=== PATIENT | female | born 1965 | race Caucasian/White ===

== ENCOUNTER 2022-05-27 13:36 | Outpatient (CLI) | payer OTHER, SELFPAY ==
[2022-05-27 18:18] LABS: Chloride* 95 mmol/L (96-114); Potassium* 3.6 mmol/L (3.6-5.1); Sodium* 137 mmol/L (135-149)
[2022-05-27 18:21] LABS: Blood Urea Nitrogen* 18 mg/dL (7-30); Carbon Dioxide* 31 mmol/L (20-32); Cholesterol* 248 mg/dL (90-199); Creatinine* 0.8 mg/dL (0.5-1.5); Estimated Glomerular Filt Rate 85 ml/min
[2022-05-27 18:22] LABS: Calcium* 9.1 mg/dL (8.4-10.6); Glucose* 102 mg/dL (60-115); HDL Cholesterol* 48 mg/dL (>=50); LDL Cholesterol Calculated 162 mg/dL (<100); Triglycerides* 188 mg/dL (40-149)
== END 2022-05-27 13:37 | disposition home or self-care (01) ==
PROVIDERS: PCP Family Medicine; Visit Provider Family Medicine
DX: I10 Essential (primary) hypertension (principal); E78.5 Hyperlipidemia, unspecified; E66.01 Morbid (severe) obesity due to excess calories
CPT/HCPCS: 80048; 80061

== ENCOUNTER 2022-09-24 13:14 | Outpatient (CLI) | payer OTHER, SELFPAY ==
--- NOTE | 2022-09-24 13:40 | CRLHL7_ITS ---
For Patients: As a result of the Cures Act, medical imaging exams and procedure reports are released immediately into your electronic medical record. You may view this report before your referring provider. If you have questions, please contact your health care provider. BILATERAL SCREENING MAMMOGRAM WITH COMPUTER-AIDED DETECTION AND TOMOSYNTHESIS TECHNIQUE: CC and MLO views were obtained. These mammographic images have been obtained using full-field digital technique. These mammographic images were interpreted with the benefit of computer-aided detection. Breast Tomosynthesis was used in this interpretation. COMPARISON FILM: 09/04/20, 12/29/18, 08/22/16. FINDINGS: There are scattered areas of fibroglandular density IMPRESSION: There is no radiographic evidence for malignancy. ASSESSMENT: BI-RADS Category 2: Benign RECOMMENDATION: Routine screening mammogram in 1 year. A lay language report of this examination will be provided to the patient. Nirmal Rose M.D. Diagnostic Radiologist [email or web address] Transcribed: 3:46 [email or web address] patel/Dictated by: Nirmal Rose MD @ 09/25/2022 9:10:00 AM (Electronically Signed)
== END 2022-09-24 13:15 | disposition home or self-care (01) ==
LOC: MAMMO 13:16
PROVIDERS: PCP Family Medicine; Visit Provider Family Medicine
DX: Z12.31 Encounter for screening mammogram for malignant neoplasm of breast (principal)
CPT/HCPCS: 77063; 77067

== ENCOUNTER 2023-07-22 08:53 | Outpatient (CLI) | payer OTHER, SELFPAY | END 2023-07-22 08:54 | disposition home or self-care (01) | PROVIDERS: PCP Family Medicine; Visit Provider Family Medicine | DX: I10 Essential (primary) hypertension (principal); E78.5 Hyperlipidemia, unspecified; E66.9 Obesity, unspecified; M25.50 Pain in unspecified joint; R63.5 Abnormal weight gain; Z13.29 Encounter for screening for other suspected endocrine disorder | CPT/HCPCS: 80048; 80061; 84439; 84443 ==

== ENCOUNTER 2023-08-18 10:09 | Outpatient (CLI) | payer OTHER, SELFPAY ==
--- NOTE | 2023-08-18 11:30 | W.ANESCHARGE ---
Anesthesia Charges Start Date/Time Anesthesia Start Date: 08/18/23 Anesthesia Start Time: 11:01 Stop Date/Time Anesthesia Stop Date: 08/18/23 Anesthesia Stop Time: 11:28
--- NOTE | 2023-08-18 11:39 | W.ANESCHARGE ---
Anesthesia Charges Start Date/Time Anesthesia Start Date: 08/18/23 Anesthesia Start Time: 11:01 Stop Date/Time Anesthesia Stop Date: 08/18/23 Anesthesia Stop Time: 11:28
== END 2023-08-18 10:10 | disposition home or self-care (01) ==
LOC: OP CLINIC 10:11
PROVIDERS: PCP Family Medicine; Visit Provider Surgery
DX: Z12.11 Encounter for screening for malignant neoplasm of colon (principal); K57.30 Diverticulosis of large intestine without perforation or abscess without bleeding; Z83.719 Family history of colon polyps, unspecified
CPT/HCPCS: 00812; 45378; J2704

== ENCOUNTER 2023-08-26 18:24 | Outpatient (CLI) | payer OTHER, SELFPAY | END 2023-08-26 18:25 | disposition home or self-care (01) | LOC: NFLDREF 18:25 | PROVIDERS: PCP Family Medicine; Visit Provider Registered Nurse | DX: Z01.419 Encounter for gynecological examination (general) (routine) without abnormal findings (principal); N92.6 Irregular menstruation, unspecified | CPT/HCPCS: 83001 ==

== ENCOUNTER 2023-09-11 12:47 | Outpatient (CLI) | payer OTHER, SELFPAY ==
--- NOTE | 2023-09-11 13:00 | CRLHL7_ITS ---
For Patients: As a result of the Century Cures Act, medical imaging exams and procedure reports are released immediately into your electronic medical record. You may view this report before your referring provider. If you have questions, please contact your health care provider. INDICATION: irregular menses COMPARISON: 02/01/2019 TECHNIQUE: 2D camacho scale and color Doppler images were acquired of the pelvis using a transabdominal and transvaginal approach. FINDINGS: Sonographic images demonstrate a normal size and smooth outer contour of the uterus. Uterus measures 8.2 cm in length by 4.1 cm in AP diameter by 4.8 cm in transverse dimension. Fluid within the endocervical canal is again noted. Internal echoes are present within this fluid collection. The endometrial lining measures 9 mm in composite thickness. The right ovary is not visualized and the left ovary measures 2.5 x 1.6 x 2.0 cm. The ovaries demonstrate normal arterial and venous blood flow on color Doppler analysis. There are no suspicious fluid collections within the cul-de-sac. IMPRESSION: Mildly complex fluid collection within the endocervix is similar to the prior study. Endometrial thickness 9 millimeters. Dictated by Nirmal Rose MD @ 09/12/2023 11:24:41 AM (Electronically Signed)
== END 2023-09-11 12:48 | disposition home or self-care (01) ==
LOC: US 12:48
PROVIDERS: PCP Family Medicine; Visit Provider Registered Nurse
DX: N92.6 Irregular menstruation, unspecified (principal); R93.89 Abnormal findings on diagnostic imaging of other specified body structures
CPT/HCPCS: 76830; 76856

== ENCOUNTER 2023-09-23 09:01 | Outpatient (CLI) | payer OTHER, SELFPAY | END 2023-09-23 09:02 | disposition home or self-care (01) | PROVIDERS: PCP Family Medicine; Visit Provider Family Medicine | DX: Z01.818 Encounter for other preprocedural examination (principal) | CPT/HCPCS: 85025 ==

== ENCOUNTER 2023-09-30 07:53 | Day surgery (SDC) | payer OTHER, SELFPAY ==
[2023-09-30] MEDS: LACTATED RINGERS 1000 ML 1,000 ML 100 ML IV (07:50)
[2023-09-30 08:02] VITALS: BMI 56.3
--- NOTE | 2023-09-30 08:26 | SUR.PREOP ---
Pt has decided against IUD insertion Dr. Fung spoke with pt
[2023-09-30 08:29] VITALS: BP 142/63; PULSE 88; RESP 18; TEMP 37; O2SAT 95
[2023-09-30 08:30] LABS: Hemoglobin* 14.8 gm/dL (12.0-16.0)
[2023-09-30 08:33] LABS: Ur HCG Qualitative* Negative (Negative)
[2023-09-30] MEDS: SODIUM CHLORIDE 0.9 % (FLUSH) 10 ML SYRINGE IVF (08:45)
[2023-09-30 08:51] LABS: Creatinine* 0.7 mg/dL (0.5-1.5); Est. Creatinine Clearance* 71.58; Estimated Glomerular Filt Rate 100 ml/min
--- NOTE | 2023-09-30 09:53 | W.ANESCHARGE ---
Anesthesia Charges Start Date/Time Anesthesia Start Date: 09/30/23 Anesthesia Start Time: 09:19 Stop Date/Time Anesthesia Stop Date: 09/30/23 Anesthesia Stop Time: 10:27
--- NOTE | 2023-09-30 10:28 | PM.GYNHPPRM ---
DRAINAGE DESIGN COORDINATOR: H&P: HPI Surgical History of Present Illness Time Seen by Provider: 09:15 Date Seen: 09/30/23 Last H&P: History & Physical 09/30/23 10:28 Narrative: Jessie Dickens is a 58 year old female seen in preop prior to planned hysteroscopy and dilation and curettage. This is performed in the setting of irregular menses, with significant risk factors for endometrial hyperplasia/cancer. Gynecologic history is otherwise notable for cervical stenosis, where endometrial biopsy in the clinic could not be accomplished. Jessie is feeling well today, no acute concerns. She does note that she had significant pain and cramping status post vaginal Cytotec given cervical stenosis. No interval change to her health history otherwise. We reviewed the planned procedure in detail. Jessie has requested that we not place a Mirena IUD at time of procedure any more. We again reviewed my recommendation to proceed with endometrial protection with progestins, where we could consider an oral or intrauterine administration. Discussed risk factors for endometrial hyperplasia/cancer are related to lifelong estrogen exposure - where she is at significant risk in the setting of nulliparity, delayed age of menopause and elevated BMI. After this discussion, patient is not comfortable proceeding with IUD insertion thus we will not proceed. She is agreeable to oral progestins, prescription will be sent. PFSH PFSH Surgical History S/P cholecystectomy ?Z90.49 - Acquired absence of other specified parts of digestive tract (ICD-10) Family History Mother Osteoporosis Stroke Heart disease Brother Diabetes FH: mental illness Other Lung cancer Social History What is your current living situation?: I presently have a place to live Problems where you live: no known problems In the past 12 months, utilities in danger of being shut off: no In past 12 months, lack of transportation kept you from medical appts, meetings, work, or getting things needed for daily living: no In the past 12 mos, have been you worried that your food would run out before you had money to buy more?: never true In the past 12 mos, the food you bought just didn't last and you didn't have money to buy more?: never true Smoking Status: Former smoker Do you use any of these nicotine containing products: None How often do you have a drink containing alcohol: monthly or less Alcohol type: hard liquor How many standard drinks containing alcohol do you have on a typical day: 1 or 2 How often do you have six or more drinks on one occasion: Never AUDIT-C Alcohol total score: 1 Non-prescribed substance use: denies use Caffeine: Yes (coffee) How often does anyone, including family, friends and others, physically hurt you: never How often does anyone, including family, friends and others, insult or talk down to you: sometimes How often does anyone, including family, friends and others, threaten you with harm: never How often does anyone, including family, friends and others, scream or curse at you: never Little interest or pleasure in doing things: not at all Feeling down, depressed, or hopeless: not at all Are you using contraception or practicing any form of control: No Meds Home Medications and Allergies Allergies Allergy/AdvReac Type Severity Reaction Status Date / Time Penicillins Allergy Intermediate Rash Verified 09/30/23 08:00 Quinolones Allergy Intermediate Rash Verified 09/30/23 08:00 Sulfa (Sulfonamide Allergy Intermediate Rash Verified 09/30/23 08:00 Antibiotics) DRAINAGE DESIGN COORDINATOR - Exam Physical Exam: Vital signs: Temp Pulse Resp BP Pulse Ox O2 Del Method 98.6 F 88 18 142/63 H 95 Room Air 09/30/23 08:29 09/30/23 08:29 09/30/23 08:29 09/30/23 08:29 09/30/23 08:29 09/30/23 08:29 Narrative: Physical exam: General: No acute distress Psych: Alert and oriented x3, full affect Heart: Regular rate and rhythm, no murmur rub or gallop Lungs: Clear to auscultation bilaterally DRAINAGE DESIGN COORDINATOR - Results Labs Labs: Short CBC 09/30/23 Range/Units 08:20 Hgb 14.8 (12.0-16.0) gm/dL BMP 09/30/23 08:20 Creatinine 0.7 Assessment and Plan Assessment and plan (1) Cervical stenosis (uterine cervix): Status: Acute (2) BMI 50.0-59.9, adult: Status: Acute (3) Irregular bleeding: Status: Acute Plan Jessie is a 58-year-old G0 seen in preop prior to planned hysteroscopy and dilation and curettage. This is recommended in the setting of abnormal uterine bleeding with significant risk factors for endometrial/carcinoma. Discussed risks, benefits and alternatives to procedure in detail again, where she has an increased risk in particular a perforation in the setting of cervical stenosis. Vaginal Cytotec is been administered to aid in cervical softening/dilation. She expressed understanding to the above risks and wishes to proceed. Written consent was previously obtained. - Planned hysteroscopy and dilation and curettage - Specimen to be sent for pathologic evaluation - Patient is no longer interested in Mirena IUD placement, agreeable to oral progestin for endometrial protection however. Plan to send Rx to be started after surgery. - No perioperative antibiotics - Preoperative labs were reviewed and are within normal limits, UPT negative
--- NOTE | 2023-09-30 10:28 | W.PM.GYNPROC ---
Procedure Note Time Seen by Provider: 10:00 Date of procedure: 09/30/23 Pre-op diagnosis: Abnormal uterine bleeding Post-op diagnosis: same Procedure: Hysteroscopy, dilation and curettage Anesthesia: MAC and local Complications: None Surgeon: Renan Fung MD Estimated blood loss (mL): 10 IV fluids (mL): 700 Urine Output (mL): 150 Pathology: specimen obtained, sent to pathology Condition: stable Disposition: same day Findings: Normal external genitalia Cervical stenosis at the level of the external os Endometrium appears thickened, hyperemic with some proliferative/polypoid like tissue. Fine calcifications seen in areas. Procedure Description: Procedure in detail: Patient was taken to the operating room with IV running. She was positioned in dorsal lithotomy position with her legs fully supported in Yellofin stirrups. Monitored anesthesia care was administered. She was prepped and draped in the usual sterile fashion. Exam under anesthesia was performed for the above-noted findings. Speculum was inserted. Cervix visualized and grasped along the anterior lip with a single-tooth tenaculum. Paracervical block performed with 0.5% Marcaine, 10 mL in total. Pinpoint external os noted, gently dilated with plastic os finder. Endocervical canal could then be accessed, it was serially dilated without difficulty to accommodate hysteroscope. TRUCLEAR hysteroscope was assembled with saline inflow and outflow in place. The line was flushed of bubbles. The hysteroscope was advanced through the cervix into the endometrial cavity for the above noted findings. The tissue morcellator was then inserted through the operating channel. Window lock was performed. Under direct visualization, the endometrial cavity was circumferentially curetted with the tissue morcellator. Particular concern was paid to the fundus and left cornua, given proliferative hyperemic tissue there with fine calcifications. Postprocedure picture was obtained. The hysteroscope and morcellator were then removed from the uterus. Tenaculum was removed from the anterior lip of cervix. Hemostasis was noted. Patient tolerated procedure well. She was taken to recovery area in stable condition. Surgical D brief was performed. No apparent complications. QBL was 10 mL, fluid deficit of 200 mL. Endometrial curettings to be sent for pathologic evaluation.
[2023-09-30 10:34] VITALS: BP 131/72; PULSE 87; RESP 16; TEMP 36.2; O2SAT 92
[2023-09-30 10:45] VITALS: BP 123/77; PULSE 78; RESP 16; O2SAT 94
[2023-09-30 11:00] VITALS: BP 129/74; PULSE 78; RESP 16; O2SAT 94
--- NOTE | 2023-09-30 11:00 | W.ANESCHARGE ---
Anesthesia Charges Start Date/Time Anesthesia Start Date: 09/30/23 Anesthesia Start Time: 09:19 Stop Date/Time Anesthesia Stop Date: 09/30/23 Anesthesia Stop Time: 10:27
[2023-09-30 11:15] VITALS: BP 128/7; PULSE 72; RESP 16; TEMP 36.2; O2SAT 94
== END 2023-09-30 11:36 | disposition home or self-care (01) ==
PROVIDERS: PCP Family Medicine; Visit Provider Obstetrics & Gynecology
PROC: 0UDB8ZZ Extraction of Endometrium, Via Natural or Artificial Opening Endoscopic (ICD-10-PCS; CPT 58558; principal; 2023-09-30 09:15)
DX: N93.8 Other specified abnormal uterine and vaginal bleeding (principal); N92.5 Other specified irregular menstruation; N88.2 Stricture and stenosis of cervix uteri; N84.0 Polyp of corpus uteri
CPT/HCPCS: 58558; 00952; 36415; 81025; 82565; 85018; 88305; 88341; 88342; J1100; J1885; J2250; J2405; J2704; J3010; J7120

== ENCOUNTER 2023-10-07 17:25 | Outpatient (CLI) | payer OTHER, SELFPAY ==
--- NOTE | 2023-10-07 17:40 | CRLHL7_ITS ---
For Patients: As a result of the Century Cures Act, medical imaging exams and procedure reports are released immediately into your electronic medical record. You may view this report before your referring provider. If you have questions, please contact your health care provider. BILATERAL SCREENING MAMMOGRAM WITH COMPUTER-AIDED DETECTION AND TOMOSYNTHESIS TECHNIQUE: CC and MLO views were obtained. These mammographic images have been obtained using full-field digital technique. These mammographic images were interpreted with the benefit of computer-aided detection. Breast Tomosynthesis was used in this interpretation. COMPARISON FILM: 09/04/20, 12/19/18, 08/22/16. FINDINGS: There are scattered areas of fibroglandular density. IMPRESSION: There is no radiographic evidence for malignancy. ASSESSMENT: BI-RADS Category 1: Negative RECOMMENDATION: Routine screening mammogram in 1 year. A lay language report of this examination will be provided to the patient. Nirmal Rose M.D. Diagnostic Radiologist [email or web address] SP/Dictated by: Nirmal Rose MD @ 10/08/2023 1:08:00 PM (Electronically Signed)
== END 2023-10-07 17:26 | disposition home or self-care (01) ==
LOC: MAMMO 17:25
PROVIDERS: PCP Family Medicine; Visit Provider Family Medicine
DX: Z12.31 Encounter for screening mammogram for malignant neoplasm of breast (principal)
CPT/HCPCS: 77063; 77067

== ENCOUNTER 2023-11-11 13:14 | Outpatient (CLI) | payer OTHER, SELFPAY | END 2023-11-11 13:15 | disposition home or self-care (01) | PROVIDERS: PCP Family Medicine; Visit Provider Family Medicine | DX: Z01.818 Encounter for other preprocedural examination (principal) | CPT/HCPCS: 80048 ==

== ENCOUNTER 2023-11-19 09:47 | Outpatient (CLI) | payer OTHER, SELFPAY ==
[2023-11-19] MEDS: PERFLUTREN LIPID MICROSPHERES 2 ML VIAL IV (10:40)
== END 2023-11-19 09:48 | disposition home or self-care (01) ==
LOC: RAD 09:48
PROVIDERS: PCP Family Medicine; Visit Provider Family Medicine
DX: R01.1 Cardiac murmur, unspecified (principal); I35.0 Nonrheumatic aortic (valve) stenosis
CPT/HCPCS: 93306; Q9957

== ENCOUNTER 2024-01-13 09:32 | Outpatient (CLI) | payer OTHER, SELFPAY ==
--- NOTE | 2024-01-13 10:00 | CT_ITS ---
Patient: MIGUEL TINSLEY Facility:?[facility] Patient ID:?[id number] Site Patient ID:?[id number] Site :?[id number] Study:?CT-Abdomen/Pelvis 150CC ISOVUE 370-01/13/2024 2:39:44 PM Ordering Physician:?DR. HUANG Final Report: INDICATION: Right groin pain since hysterectomy 11/20/2023 TECHNIQUE: CT abdomen and pelvis with 150 mL Isovue 370 COMPARISON: None. FINDINGS: Lower chest: A few tiny micronodules. Example 2 millimeter subpleural left lower lobe nodule on 10/25. Liver: Fatty appearance of the liver. Gallbladder and bile ducts: Cholecystectomy. Pancreas: Unremarkable. No mass or inflammation. Spleen: Normal in size. No masses. Adrenal glands: Normal in size. No nodules. Kidneys: Normal in size. No suspicious masses, stones, or hydronephrosis. GI tract: Abundant stool in the colon bowel appears unremarkable. Tiny fat containing inguinal hernias bilaterally. Vasculature: Abdominal aorta is normal in caliber. Lymph nodes: No lymphadenopathy. Peritoneum/Abdominal Wall: Unremarkable. No sign of mass or infiltration. No free air or significant free fluid. Pelvis: Hysterectomy. No fluid collections. Bones: Unremarkable for age. IMPRESSION: 1. No acute findings in the abdomen or pelvis. Hysterectomy. No fluid collections. Tiny fat containing inguinal hernias bilaterally. 2. A few tiny micro nodules measuring up to 2 millimeters follow-up per Fleischner society guidelines. FLEISCHNER SOCIETY GUIDELINES - SOLID NODULES: SINGLE LOW RISK - nodule less than 6 mm: No routine follow-up. - nodule 6-8 mm: CT at 6-12 months, then consider CT at 18-24 months. - nodule greater than 8 mm: Consider CT at 3 months, PET/CT or tissue sampling. SINGLE HIGH RISK - nodule less than 6 mm: Optional CT at 12 months. - nodule 6-8 mm: CT at 6-12 months, then CT at 18-24 months. - nodule greater than 8 mm: Consider CT at 3 months, PET/CT or tissue sampling. MULTIPLE LOW RISK - nodule less than 6 mm: No routine follow-up. - nodule 6-8 mm: CT at 3-6 months, then consider CT at 18-24 months. - nodule greater than 8 mm: CT at 3-6 months, then consider CT at 18-24 months. MULTIPLE HIGH RISK - nodule less than 6 mm: Optional CT at 12 months. - nodule 6-8 mm: CT at 3-6 months, then at 18-24 months. - nodule greater than 8 mm: CT at 3-6 months, then at 18-24 months. Please note that all CT scans at this facility use dose modulation, iterative reconstruction, and/or weight-based dosing when appropriate to reduce radiation dose to as low as reasonably achievable. Dictated by Akilah Perez MD @ 01/14/2024 5:56:07 AM Signed by:?Akilah Perez MD @01/14/2024 5:56:07 AM (Electronic Signature)
== END 2024-01-13 09:33 | disposition home or self-care (01) ==
LOC: CT 09:34
PROVIDERS: PCP Family Medicine; Visit Provider Nurse Practitioner Obstetrics & Gynecology
DX: G89.18 Other acute postprocedural pain (principal); R91.8 Other nonspecific abnormal finding of lung field
CPT/HCPCS: 74177; Q9967

== ENCOUNTER 2024-02-20 10:04 | Outpatient (CLI) | payer OTHER, SELFPAY ==
--- NOTE | 2024-02-20 10:15 | CRLHL7_ITS ---
For Patients: As a result of the Century Cures Act, medical imaging exams and procedure reports are released immediately into your electronic medical record. You may view this report before your referring provider. If you have questions, please contact your health care provider. Indication: Right hip pain Comparison: 01/30/2024 Procedure : Informed consent was obtained. The site was marked. Time-out was performed. The skin of the right hip was cleansed with ChloraPrep. A sterile drape was placed. 8 cc of 1 percent lidocaine was administered for superficial anesthesia. Subsequently a 22 gauge spinal needle was introduced into the right hip joint under intermittent fluoroscopic guidance. Injection of 7 cc 1 percent lidocaine and 2 cc 40 milligrams/cc Depo-Medrol into the right hip joint then performed. The needle was removed and hemostasis achieved with direct pressure. A dressing was placed. The patient tolerated the procedure well without immediate complication. Total fluoroscopy time 12 seconds. Impression: Successful fluoroscopically guided right hip injection with 80 milligrams of Depo-Medrol. Dictated by Nirmal Rose MD @ 02/23/2024 7:10:29 AM (Electronically Signed)
== END 2024-02-20 10:05 | disposition home or self-care (01) ==
PROVIDERS: PCP Family Medicine; Visit Provider Physician Assistant Surgical
DX: M25.551 Pain in right hip (principal); M16.11 Unilateral primary osteoarthritis, right hip; R10.31 Right lower quadrant pain
CPT/HCPCS: 20610; 77002; Q9966

== ENCOUNTER 2024-07-29 11:06 | Outpatient (CLI) | payer OTHER, SELFPAY ==
--- NOTE | 2024-07-29 11:15 | CRLHL7_ITS ---
For Patients: As a result of the Century Cures Act, medical imaging exams and procedure reports are released immediately into your electronic medical record. You may view this report before your referring provider. If you have questions, please contact your health care provider. Indication: Right hip pain Comparison: 02/20/2024 Procedure : Informed consent was obtained. The site was marked. Time-out was performed. The skin of the right hip was cleansed with ChloraPrep. A sterile drape was placed. 8 cc of 1 percent lidocaine was administered for superficial anesthesia. Subsequently a 20 gauge spinal needle was introduced into the right shoulder joint under intermittent fluoroscopic guidance. 7 cc of 1 percent lidocaine and 2 cc of 40 milligrams/cc Depo-Medrol then injected into the right hip joint. The needle was removed and hemostasis achieved with direct pressure. A dressing was placed. The patient tolerated the procedure well without immediate complication. Total fluoroscopy time 10 seconds. Impression: Successful fluoroscopically guided right hip injection with 80 milligrams of Depo-Medrol. Dictated by Nirmal Rose MD @ 07/30/2024 1:28:28 PM (Electronically Signed)
== END 2024-07-29 11:07 | disposition home or self-care (01) ==
LOC: RAD 11:07
PROVIDERS: PCP Family Medicine; Visit Provider Physician Assistant Surgical
DX: M25.551 Pain in right hip (principal); M16.11 Unilateral primary osteoarthritis, right hip
CPT/HCPCS: 20610; 77002; J1010; Q9966

== ENCOUNTER 2024-08-03 10:21 | Outpatient (CLI) | payer OTHER, SELFPAY | END 2024-08-03 10:22 | disposition home or self-care (01) | PROVIDERS: PCP Family Medicine; Visit Provider Family Medicine | DX: I10 Essential (primary) hypertension (principal); E78.2 Mixed hyperlipidemia | CPT/HCPCS: 80053; 80061 ==

== ENCOUNTER 2024-08-27 14:11 | Outpatient (CLI) | payer OTHER, SELFPAY ==
[2024-08-27 20:29] LABS: Bacterial Vaginosis* POSITIVE (Negative); Candida glab/krus NOT DETECTED (No Detected); Candida species NOT DETECTED (No Detected); Trichomonas vaginalis NOT DETECTED (No Detected)
== END 2024-08-27 14:12 | disposition home or self-care (01) ==
PROVIDERS: PCP Family Medicine; Visit Provider Registered Nurse
DX: L29.2 Pruritus vulvae (principal); G25.81 Restless legs syndrome; N39.41 Urge incontinence
CPT/HCPCS: 81513; 82728; 87086; 87481; 87661

== ENCOUNTER 2024-10-25 13:31 | Outpatient (CLI) | payer OTHER, SELFPAY ==
--- NOTE | 2024-10-25 13:40 | CRLHL7_ITS ---
For Patients: As a result of the Cures Act, medical imaging exams and procedure reports are released immediately into your electronic medical record. You may view this report before your referring provider. If you have questions, please contact your health care provider. BILATERAL DIGITAL SCREENING MAMMOGRAM WITH COMPUTER-AIDED DETECTION AND TOMOSYNTHESIS CLINICAL HISTORY: Routine screening exam. COMPARISON: 10/07/2023, 09/24/2022, 10/05/2019. TECHNIQUE: Digital mammogram in CC and MLO projections including computer-aided detection (CAD). Tomosynthesis was used in this interpretation. BREAST COMPOSITION: The breasts are almost entirely fatty. FINDINGS: RIGHT Breast: No suspicious findings. LEFT Breast: Nodular density within the lateral breast 4 cm from the nipple. IMPRESSION: LEFT breast asymmetry/mass. RECOMMENDATIONS: Additional mammographic views of the LEFT breast including 3D spot compression CC/MLO. LEFT breast ultrasound may also be required. The [facility] will contact the patient. A lay language report of this examination will be provided to the patient. BI-RADS Category 0: Incomplete: Need Additional Imaging Evaluation Dictated by Nirmal Rose MD @ 10/26/2024 9:19:13 AM /Dictated by: Nirmal Rose MD @ 10/26/2024 9:19:00 AM (Electronically Signed)
== END 2024-10-25 13:32 | disposition home or self-care (01) ==
LOC: MAMMO 13:31
PROVIDERS: PCP Family Medicine; Visit Provider Family Medicine
DX: Z12.31 Encounter for screening mammogram for malignant neoplasm of breast (principal); N63.20 Unspecified lump in the left breast, unspecified quadrant
CPT/HCPCS: 77063; 77067

== ENCOUNTER 2024-11-08 09:32 | Outpatient (CLI) | payer OTHER, SELFPAY ==
--- NOTE | 2024-11-08 09:45 | CRLHL7_ITS ---
For Patients: As a result of the Cures Act, medical imaging exams and procedure reports are released immediately into your electronic medical record. You may view this report before your referring provider. If you have questions, please contact your health care provider. LEFT DIAGNOSTIC MAMMOGRAM WITH COMPUTER-AIDED DETECTION AND TOMOSYNTHESIS LEFT BREAST ULTRASOUND CLINICAL HISTORY: LEFT breast mass/asymmetry. COMPARISON: 10/25/24, 10/07/23, 09/24/22. TECHNIQUE: Digital LEFT mammogram in two projections. Computer-aided detection and tomosynthesis were used in this interpretation. Real-time ultrasound imaging of LEFT breast with imaging documentation. BREAST COMPOSITION: The breasts are almost entirely fatty. FINDINGS: 3D spot compression CC/MLO LEFT breast mammogram images submitted. Decreased conspicuity of previously noted density within the lateral LEFT breast. No architectural distortion. No suspicious calcifications. Targeted LEFT breast ultrasound performed at 3 o`clock, 4 cm from the nipple. Normal breast tissue is present. No fibrocystic change or mass. No suspicious findings. IMPRESSION: No evidence of malignancy. Benign intramammary lymph node LEFT breast. RECOMMENDATIONS: Routine screening mammography. A lay language report of this examination will be provided to the patient. BI-RADS Category 2: Benign Dictated by Nirmal Rose MD @ 11/08/2024 11:00:11 AM /sp SP/Dictated by: Nirmal Rose MD @ 11/08/2024 11:00:00 AM (Electronically Signed)
--- NOTE | 2024-11-08 10:15 | CRLHL7_ITS ---
For Patients: As a result of the Century Cures Act, medical imaging exams and procedure reports are released immediately into your electronic medical record. You may view this report before your referring provider. If you have questions, please contact your health care provider. PLEASE SEE LEFT BREAST DIAGNOSTIC MAMMOGRAM PERFORMED SAME DAY. CRL:sp SP/Dictated by: Nirmal Rose MD @ 11/08/2024 11:00:00 AM (Electronically Signed)
== END 2024-11-08 09:33 | disposition home or self-care (01) ==
LOC: MAMMO 09:32
PROVIDERS: PCP Family Medicine; Visit Provider Family Medicine
DX: N63.20 Unspecified lump in the left breast, unspecified quadrant (principal); R92.8 Other abnormal and inconclusive findings on diagnostic imaging of breast
CPT/HCPCS: 76642; 77065; G0279

== ENCOUNTER 2025-02-21 12:30 | Outpatient (RCR) | payer OTHER, SELFPAY | END 2025-03-03 16:57 | disposition home or self-care (01) | PROVIDERS: PCP Family Medicine; Visit Provider Physician Assistant Surgical | DX: M16.11 Unilateral primary osteoarthritis, right hip (principal); M70.71 Other bursitis of hip, right hip; M79.651 Pain in right thigh; N39.41 Urge incontinence; Z51.89 Encounter for other specified aftercare | CPT/HCPCS: 97110; 97112; 97116; 97140; 97162; 97530; 97535 ==

== ENCOUNTER 2025-05-09 14:00 | Outpatient (RCR) | payer OTHER, SELFPAY | END 2025-05-13 17:05 | disposition home or self-care (01) | PROVIDERS: PCP Family Medicine; Visit Provider Orthopaedic Surgery | DX: N39.46 Mixed incontinence (principal); M25.551 Pain in right hip; M25.651 Stiffness of right hip, not elsewhere classified; G25.81 Restless legs syndrome; R26.9 Unspecified abnormalities of gait and mobility; Z96.641 Presence of right artificial hip joint; Z47.1 Aftercare following joint replacement surgery | CPT/HCPCS: 97110; 97116; 97161 ==

== ENCOUNTER 2025-08-30 14:09 | Outpatient (CLI) | payer OTHER, SELFPAY ==
[2025-08-30 20:05] LABS: Bacterial Vaginosis* POSITIVE (Negative); Candida glab/krus NOT DETECTED (No Detected)
[2025-09-02 07:48] LABS: HPV Source Vaginal
[2025-09-06 09:37] LABS: Pap Test Digital Imaging Done
== END 2025-08-30 14:10 | disposition home or self-care (01) ==
PROVIDERS: PCP Family Medicine; Visit Provider Registered Nurse
DX: L29.2 Pruritus vulvae (principal); Z12.4 Encounter for screening for malignant neoplasm of cervix; Z13.9 Encounter for screening, unspecified
CPT/HCPCS: 80061; 81513; 87481; 87624; 87625; 87661; 88141; 88142; 88175